=== PATIENT | female | born 1950 | race Caucasian/White ===

== ENCOUNTER 2017-12-17 14:48 | Outpatient (CLI) | payer MEDICARE ==
[~2017-12-17 14:48] MED LIST: CYTOMEL5 MCG ORAL; EFFEXOR XR150 MG ORAL; MODAFINIL100 MG ORAL; RANITIDINE HCL150 MG ORAL; SYNTHROID75 MCG ORAL
--- NOTE | 2017-12-17 16:45 | Diagnostic Imaging Report ---
Indication: Cough Technique: 2 views of the chest Comparison: None Findings: Lungs and pleural spaces are clear. The heart size is normal. The bones are unremarkable. No significant interim change. Impression: Negative
== END 2017-12-17 16:48 | disposition home or self-care (01) ==
LOC: RAD 14:48
DX: R05 Cough (principal)
CPT/HCPCS: 71046

== ENCOUNTER 2019-10-26 11:00 | Outpatient (CLI) | payer MEDICARE ==
[2019-10-27] MEDS ORDERED: PROZAC10 MG ORAL (08:51)
[2019-10-27] MEDS ORDERED: DEPLIN-ALGAL O1 EACH PO (08:51)
[2019-10-27] MEDS ORDERED: XANAX0.25 MG ORAL (08:51)
[2019-10-27] MEDS ORDERED: BUTALB-ACETAMI1 EAC1 PO (08:51)
[2019-10-27] MEDS ORDERED: TIROSINT150 MCG ORAL (08:51)
[2019-10-27] MEDS ORDERED: STRATTERA10 MG PO (08:51)
[2019-10-27] MEDS ORDERED: VITAMIN D35000 UNIT PO (08:51)
--- NOTE | 2019-10-27 21:15 | Consultation ---
DATE OF CONSULTATION: 10/26/2019 GASTROENTEROLOGY CONSULTATION CONSULTING PHYSICIAN: Ray Yung M.D. CHIEF COMPLAINT: Screening colonoscopy evaluation and chronic GERD. HISTORY OF PRESENT ILLNESS: This is a very pleasant 69-year-old female was referred to us for evaluation of screening colonoscopy and chronic GERD. PAST MEDICAL HISTORY: 1. 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 2. Spinal stenosis, performed URI. 3. Osteoporosis. 4. GERD. 5. History of peripheral vascular disease. 6. Sleep apnea. 7. Breast cancer. 8. Hyperparathyroidism. 9. Cervical CA. PAST SURGICAL HISTORY: 1. Hysterectomy. 2. Parathyroidectomy. 3. Breast cancer surgery. 4. Right knee surgeries. 5. Right foot surgery. ALLERGIES: Allergic to Celexa and . MEDICATIONS: Please see medication reconciliation list. REVIEW OF SYSTEMS: A 10-point review of systems was performed and pertinent positives in HPI. FAMILY HISTORY: Noncontributory. SOCIAL HISTORY: The patient denies any tobacco, alcohol, or drug abuse. PHYSICAL EXAMINATION: GENERAL: This is a well-developed female, in no acute distress. HEENT: Normocephalic and atraumatic. Sclerae anicteric. NECK: Supple. No evidence of obvious lymphadenopathy. CARDIOVASCULAR: Regular rate and rhythm. Plus S1 and S2. No obvious murmur. LUNGS: Decreased breath sounds bilaterally based on the supine exam. ABDOMEN: Soft and nontender. No rebound. No guarding. No peritoneal sign. EXTREMITIES: No cyanosis. No clubbing. No edema. ASSESSMENT AND PLAN: This is a 69-year-old female, referred for screening colonoscopy and chronic GERD. The patient was given instruction and preparation for colonoscopy. Risks and benefits of procedure were explained to her, she agreed to it, we will plan to schedule for this week. I want to thank, Dr. Najma Crenshaw, for this kind referral. Ray Yung M.D. DR: AFTAB JOB#: [id number] CC: Najma Crenshaw M.D.; Fax#: [phone]
== END 2019-10-26 13:00 | disposition home or self-care (01) ==
LOC: PAN 11:00
DX: K21.9 Gastro-esophageal reflux disease without esophagitis (principal); Z86.19 Personal history of other infectious and parasitic diseases; M81.0 Age-related osteoporosis without current pathological fracture; G47.30 Sleep apnea, unspecified; Z85.3 Personal history of malignant neoplasm of breast; Z85.41 Personal history of malignant neoplasm of cervix uteri; Z90.710 Acquired absence of both cervix and uterus; E89.0 Postprocedural hypothyroidism; Z88.8 Allergy status to other drugs, medicaments and biological substances

== ENCOUNTER 2019-10-28 10:31 | Day surgery (SDC) | payer MEDICARE ==
[2019-10-28] VITALS (8 sets, daily range): BP systolic 107–145; BP diastolic 54–73
[~2019-10-28] VITALS: Ht 167.6 cm; Wt 78.0 kg
[~2019-10-28 10:31] MED LIST changes: +BUTALB-ACETAMI1 EAC1 PO; +DEPLIN-ALGAL O1 EACH PO; +LR 1000ml 1,000 ML IVLG SCH; +PROZAC10 MG ORAL; +STRATTERA10 MG PO; +TIROSINT150 MCG ORAL; +VITAMIN D35000 UNIT PO; +XANAX0.25 MG ORAL
[2019-10-28] MEDS ORDERED: LR 1000ml ONE (12:00)
[2019-10-28] MEDS ORDERED: Lidocaine 1% MPF 10mg/ml 5ml ONE (12:00)
[2019-10-28] MEDS ORDERED: Propofol 200mg/20ml IV ONE (12:00)
--- NOTE | 2019-10-28 12:32 | Pre-Procedure Note/Attestation ---
Pre-Procedure Note/Attestation Complete Prior to Procedure Planned Procedure: not applicable Procedure Narrative: esophagogastroduodenoscopy and colonoscopy/ Indications for Procedure Pre-Operative Diagnosis: gerd, screening Attestation I attest that I discussed the nature of the procedure; its benefits; risks and complications; and alternatives (and the risks and benefits of such alternatives ), prior to the procedure, with the patient (or the patient's legal loan servicing representative). I attest that, if there was a reasonable possibility of needing a blood transfusion, the patient (or the patient's legal loan servicing representative) was given the [facility] standardized written summary, pursuant to the Jovan [employer] Carlos Blood Safety Act ([place] Health and Safety Code # 1645, as amended). I attest that I re-evaluated the patient just prior to the surgery and that there has been no change in the patient's H&P, except as documented below: Ray Yung MD Oct 28, 2019 12:32
--- NOTE | 2019-10-28 12:32 | Short Stay Surgery H&P ---
History of Present Illness History of Present Illness Chief Complaint see office note HPI Marylou Logan is a 69 year old female who was admitted on for Gerd And Screening Patient History Allergies: Coded Allergies: AMITRIPTYLINE (Verified Allergy, Unknown, 10/25/14) BUPROPION (Verified Allergy, Unknown, 10/25/14) CITALOPRAM (Verified Allergy, Unknown, 10/25/14) Uncoded Allergies: PETER (Allergy, Intermediate, 10/26/14) CONVULSIONS Medication History Scheduled Atomoxetine Hcl (Strattera), 10 MG PO DAILY, (Reported) Butalb/Acetaminophen/Caffeine (Bcykpg-Ilsfigeb-Razf 50-325-40), 1 EACH PO Q4HR, (Reported) Cholecalciferol (Vitamin D3) (Vitamin D3), 5,000 UNIT PO DAILY, (Reported) Fluoxetine Hcl* (Prozac*), 10 MG ORAL DAILY, (Reported) Levomefolate/Algal Oil (Deplin-Algal Oil 7.5 Mg Cap), 1 EACH PO DAILY, (Reported ) Levothyroxine Sodium (Tirosint), 150 MCG ORAL DAILY, (Reported) Liothyronine Sodium* (Cytomel*), 10 MCG ORAL DAILY, (Reported) Discontinued Medications Alprazolam* (Xanax*), 0.25 MG ORAL BID, (Reported) Discontinued Reason: Pt stopped taking med Levothyroxine Sodium* (Synthroid*), 75 MCG ORAL DAILY, (Reported) Discontinued Reason: discontinued med Modafinil* (Provigil), 50 MG ORAL DAILY, (Reported) Discontinued Reason: discontinued med Ranitidine Hcl* (Zantac*), 150 MG ORAL DAILY, (Reported) Discontinued Reason: discontinued med Venlafaxine Hcl* (Effexor Xr*), 300 MG ORAL DAILY, (Reported) Discontinued Reason: MD discontinued med Physical Exam Vital Signs Last Vital Signs Date Time Temp Pulse Resp B/P (MAP) Pulse Ox O2 Delivery O2 Flow Rate FiO2 10/28/19 11:14 97.9 78 18 107/73 96 Room Air Plan Attestation Are the patient's medical conditions optimized for surgery? Ray Yung MD Oct 28, 2019 12:32
[2019-10-28] MEDS ORDERED: LR 1000ml 1,000 ML IVLG SCH (12:49)
[2019-10-28] MEDS ORDERED: Midazolam 2mg/2ml Inj IVP PRN (13:00)
[2019-10-28] MEDS ORDERED: Atropine Inj 1mg/10ml Syr IV PRN (13:00)
[2019-10-28] MEDS ORDERED: fentaNYL 100 mcg/2 mL IV PRN (13:00)
[2019-10-28] MEDS ORDERED: DiphenhydrAMINE 50mg/ml Inj IVP PRN (13:00)
--- NOTE | 2019-10-28 13:03 | Anethesia Preoperative Eval ---
Anesthesia Pre-op PMH/ROS General Date of Evaluation: Oct 28, 2019 Time of Evaluation: 12:16 Anesthesiologist: agustin ASA Score: ASA 3 Mallampati Score Class I : Soft palate, uvula, fauces, pillars visible Class II: Soft palate, uvula, fauces visible Class III: Soft palate, base of uvula visible Class IV: Only hard plate visible Mallampati Classification: Class II Surgeon: ezekiel Diagnosis: abdominal pain, gerd, colon screening Surgical Procedure: egd/colonoscopy Anesthesia History: none Social History: alcohol use Family History: no anesthesia problems Allergies: Coded Allergies: AMITRIPTYLINE (Verified Allergy, Unknown, 10/25/14) BUPROPION (Verified Allergy, Unknown, 10/25/14) CITALOPRAM (Verified Allergy, Unknown, 10/25/14) Uncoded Allergies: PETER (Allergy, Intermediate, 10/26/14) CONVULSIONS Medications: see eMAR Patient NPO?: Yes Past Medical History Cardiovascular: Reports: other - hypercholesterolemia Gastrointestinal/Genitourinary: Reports: GERD, other - hepatitis Endocrine: Reports: hypothyroidism HEENT: Reports: other - sinus sx Hematology/Immune: Reports: other - breast cancer Musculoskeletal/Integumentary: Reports: OA Anesthesia Pre-op Phys. Exam Physician Exam Last Vital Signs Date Time Temp Pulse Resp B/P (MAP) Pulse Ox O2 Delivery O2 Flow Rate FiO2 10/28/19 11:14 97.9 78 18 107/73 96 Room Air Constitutional: NAD Neurologic: CN 2-12 intact Cardiovascular: RRR Respiratory: CTA Gastrointestinal: S/NT/ND Airway Exam Mallampati Score: Class II MO: limited Neck: flexible TMD: 2fb ROM: limited Teeth: missing Anesthesia Pre-op A/P Studies Pre-op Studies: EKG - sinus rhythm, lad Risk Assessment & Plan Assessment: asa3 Plan: mac Status Change Before Surgery: No Pre-Antibiotics Drug: Lynda Swift MD Oct 28, 2019 13:03
--- NOTE | 2019-10-28 13:04 | Endoscopy Procedure Note ---
Endoscopy Procedure Note General Indication for Procedure: screenin colon Procedures Performed: EGD, colonoscopy Operative Findings/Diagnosis: screening colon, GERD Specimen: yes Pt Tolerated Procedure Well: Yes Estimated Blood Loss: none Anesthesia Anesthesiologist: estefani Anesthesia: MAC Inserted Devices Implant(s) used?: No Quality Quality of Bowel Preparation: Good Did scope reach the cecum?: Yes Was there any complications?: No GI Core Measures 50 yrs or older w/o bx or poly: No 10yrs. F/U recommended: Yes If not recommended, why?: Above average risk 18 years or older w/prev. colo: No Ray Yung MD Oct 28, 2019 13:04
--- NOTE | 2019-10-28 13:23 | Immediate Post-Op Evaluation ---
Immediate Post-Op Evalulation Immediate Post-Op Evalulation Procedure: egd/colonoscopy w/bx Date of Evaluation: Oct 28, 2019 Time of Evaluation: 13:19 IV Fluids: 550ml lr Blood Products: none Estimated Blood Loss: negligilble Blood Pressure Systolic: 130 Blood Pressure Diastolic: 78 Pulse Rate: 93 Respiratory Rate: 18 O2 Sat by Pulse Oximetry: 98 Temperature (Fahrenheit): 98.7 Pain Score (1-10): 0 Nausea: No Vomiting: No Complications none Patient Status: awake, reacts, patent Hydration Status: adequate Drug: Lynda Swift MD Oct 28, 2019 13:23
--- NOTE | 2019-10-28 13:25 | 48 Hour Post Anesthesia Eval ---
Post Anesthesia Evaluation Procedure: egd/colonoscopy w/bx Date of Evaluation: Oct 28, 2019 Time of Evaluation: 13:21 Blood Pressure Systolic: 133 0: 77 Pulse Rate: 87 Respiratory Rate: 18 Temperature (Fahrenheit): 98.7 O2 Sat by Pulse Oximetry: 98 Airway: patent Nausea: No Vomiting: No Pain Intensity: 0 Hydration Status: adequate Cardiopulmonary Status: stable Mental Status/LOC: patient returned to baseline Post-Anesthesia Complications: none Follow-up care needed: N/A Lynda Tejada MD Oct 28, 2019 13:25
--- NOTE | 2019-10-28 15:00 | Procedure Note ---
DATE OF PROCEDURE: 10/28/2019 SURGEON: Ray Yung M.D. REFERRING PHYSICIAN: Najma Crenshaw M.D. PROCEDURE: Upper endoscopy with screening colonoscopy. ANESTHESIA: Per Dr. Gould. INSTRUMENT: Olympus adult flexible upper endoscope and colonoscope. INDICATIONS: Screening colonoscopy evaluation and chronic GERD. REASON FOR PROCEDURE: The procedure, risks, benefits, and possible consequences, including hemorrhage, aspiration, perforation and infection, and alternative treatments, were explained to the patient/legal guardian by Dr. Ray Yung and the patient/legal guardian understood and accepted these risks. PROCEDURE IN DETAIL: After informed consent was obtained and the patient was adequately sedated, Olympus upper endoscope was advanced from the mouth into second portion of the duodenum. Retroflexion was performed in the stomach. The patient has diffuse gastritis. Random biopsy from antrum and body was obtained to rule out H. pylori infection. Also, the patient with multiple small polyps looking fundic gland polyps. No biopsy was obtained. At this time, the upper endoscope was retrieved and the patient was turned over for colonoscopy. First rectal exam was performed which was positive for internal hemorrhoids. Then, the scope was advanced from the rectum into the cecum documented by appendix orifice, ileocecal valve, and right upper quadrant palpation. Quality of prep was good. The patient had challenging colonoscopy. Colon was very convoluted. There was one diminutive polyp in the rectosigmoid area, removed with the cold biopsy forceps technique. Otherwise, no further polyp was seen. The patient had some diverticulosis minimum in the left colon. Retroflexion of the rectum showed evidence of internal hemorrhoids. SUMMARY OF FINDINGS: 1. Gastritis, status post biopsy. 2. Multiple gastric polyps, most probably fundic gland polyps. 3. Diverticulosis of the left colon. 4. One colonic polyp removed, see above for detail. 5. Internal hemorrhoids. RECOMMENDATIONS: Follow up biopsy results and treat accordingly. We recommend repeat colonoscopy in 5 years. I want to thank Dr. Najma Crenshaw for this kind referral. Ray Yung M.D. DR: THO JOB#: [id number] CC: Najma Crenshaw M.D.; Fax#: [phone]
== END 2019-10-28 14:20 | disposition home or self-care (01) ==
LOC: GAS 10:31
DX: Z12.11 Encounter for screening for malignant neoplasm of colon (principal); K21.9 Gastro-esophageal reflux disease without esophagitis; K29.70 Gastritis, unspecified, without bleeding; K31.7 Polyp of stomach and duodenum; K57.90 Diverticulosis of intestine, part unspecified, without perforation or abscess without bleeding; K63.5 Polyp of colon; K64.8 Other hemorrhoids; Z88.8 Allergy status to other drugs, medicaments and biological substances; E78.00 Pure hypercholesterolemia, unspecified; Z85.3 Personal history of malignant neoplasm of breast; M19.90 Unspecified osteoarthritis, unspecified site
CPT/HCPCS: 43239; 45380; J2704; J7120; 94003; 94150